=== PATIENT | female | born 1990 | race Caucasian/White ===

== ENCOUNTER → 2019-08-14 | Outpatient (CLI) | payer OTHER ==
--- NOTE | 2019-08-14 17:29 | US ---
EXAM DESCRIPTION: Breast,Bilateral: Ultrasound. CLINICAL HISTORY: 29 yearsFemaleABNORMAL BREAST EXAM BREAST DISCHARGE. Radiation to patient discharge from the right nipple. 2 week duration. Minimal soreness. No discharge left nipple. Not currently breast-feeding. Remote family history of breast cancer. No genetic history. COMPARISON: None. TECHNIQUE: Transcutaneous scanning of the bilateral breast utilizing glover-scale and Doppler modes. Scanning performed by the log haul chain feeder ; observation by Dr. Crook. FINDINGS: Typical hypoechoic appearance of the retroareolar breast bilaterally. Dilated ducts bilaterally. Also heterogeneous fibroglandular tissues and fatty tissues. No definite intraductal mass. No retroareolar dominant solid mass, distinct cyst, fluid collection, or large calcifications. No overlying skin changes. IMPRESSION: BI-RADS CATEGORY: 0 - INCOMPLETE- Need additional imaging evaluation. RECOMMENDATIONS: FOLLOW-UP: Recall for additional imaging: Bilateral diagnostic digital breast tomosynthesis.. The FINDINGS and the FOLLOW-UP plan were reviewed in person with the patient after the examination. Written communication concerning the IMPRESSION and Follow-up, will be mailed to the patient and referring health care provider. Electronically signed by: Ze Crook MD 08/14/2019 5:27 PM CDT
== END ==
LOC: US 10:00
PROVIDERS: ATTEND Family Medicine
DX: N64.52 Nipple discharge (principal); R92.8 Other abnormal and inconclusive findings on diagnostic imaging of breast

== ENCOUNTER → 2019-09-04 | Outpatient (CLI) | payer OTHER ==
--- NOTE | 2019-09-05 11:56 | MAM ---
EXAM DESCRIPTION: 3D Diagnostic, Bilateral: Digital Mammography CLINICAL HISTORY: 29 yearsFemaleABNORMAL MAMMOGRAM . Bilateral breast nipple discharge. No breast ultrasound abnormalities bilaterally. No complaints or personal history of breast cancer. Maternal grandmother with breast and ovarian cancer. Menarche age 14. Childbirth age 22. Premenopausal. Currently on HRT. Lifetime risk of developing breast cancer (Tyrer-Cuzick model) percentage is 8 COMPARISON: Bilateral breast ultrasound August 13. . TECHNIQUE: Bilateral CC and MLO projection full-field images, digital mammographic tomosynthesis technique. Bilateral 2-D digital full-field MLO images. CC and MLO projections. CAD not available. FINDINGS: The breast parenchymal density pattern is: Scattered areas of fibroglandular density. No skin thickening or nipple retraction No new focal, stellate mass or density, focal asymmetry , and no suspicious microcalcifications bilaterally. IMPRESSION: No suspicious or significant imaging findings. BI-RADS CATEGORY: 1 - NEGATIVE RECOMMENDATIONS: FOLLOW UP: Routine digital bilateral screening should begin at age 40. The region of interest should be followed on clinical grounds and if noted to change in size or character, a directed follow-up ultrasound examination may be performed. Written communication explaining the findings and follow-up, will be mailed to the patient and referring health care provider. The FINDINGS and the FOLLOW-UP plan were reviewed in person with the patient after the examination. According to the [employer], yearly mammograms are recommended starting at age 40 and continuing as long as a woman is in good health. Any breast change noted on a breast self-exam should be reported promptly to the patient's healthcare provider. Breast MRI is recommended for women with an approximately 20-25% or greater lifetime risk of breast cancer, including women with a strong family history of breast or ovarian cancer and women who have been treated for Hodgkin's disease. A negative mammographic report should not delay tissue diagnosis in patients with significant clinical history or physical findings. Extremely dense breast tissue limits the sensitivity of digital mammography. Electronically signed by: Ze Crook MD 09/05/2019 11:54 AM CDT
== END ==
LOC: MAMMO 13:02
PROVIDERS: ATTEND Family Medicine
DX: R92.8 Other abnormal and inconclusive findings on diagnostic imaging of breast (principal)
CPT/HCPCS: 77066; G0279